=== PATIENT | female | born 2000 | race Caucasian/White ===

== ENCOUNTER 2025-01-24 06:44 | Observation (INO) | payer OTHER, SELFPAY ==
[2025-01-24 07:31] VITALS: BP 118/65
[2025-01-24 07:34] LABS: Add Manual Diff / Slide Review NO; Basophils Absolute Auto 0 /uL (0-100); Basophils Percent Auto 0.3 % (0-2); Eosinophils Absolute Auto 100 /uL (0-450); Eosinophils Percent Auto 0.9 % (2-4); Hematocrit 37.7 % (36-46); Hemoglobin 12.7 g/dL (12.0-16.0); Lymphocytes Absolute Auto 1700 /uL (1100-4500); Lymphocytes Percent Auto 17.5 % (25-40); Mean Corpuscular HGB Conc 33.7 % (30-36); Mean Corpuscular Hemoglobin 29.1 PG (26-34); Mean Corpuscular Volume 86.3 fL (80-100); Monocytes Absolute Auto 700 /uL (0-900); Monocytes Percent Auto 7.2 % (3-14); Neutrophils Absolute Auto 7000 /uL (1500-7000); Neutrophils Percent Auto 74.1 % (50-75); Platelet Count 234 X10^3/uL (150-400); Red Blood Cell Count 4.37 X10^6/uL (4.0-5.2); White Blood Cell Count 9.5 X10^3/uL (4.5-11.0)
[2025-01-24] MEDS: TERBUTALINE 1 MG/ML VIAL 0.25 MG SUBCUT (08:01)
--- NOTE | 2025-01-24 09:21 | P.TNLD_ITS ---
Visit Information Visit Information Date of evaluation: 01/24/25 Primary OB Provider: Shazia Waterman On-call OB Provider: Tang Mcclain Reason for Evaluation: Yes other Comments/Additional reasons for admission: Danica is a 24 year old primigravida, ASHLEIGH 02/[birth year]/2025 presenting in referral from her commercial real estate broker, Shazia Waterman now for external cephalic version @ 38+5 wks EGA. Bedside ultrasound confirms that the baby is in an incomplete breech presentation with the left leg fully extended and the right leg flexed at the knee. KARL is 8+ cm. Placenta is grade 2-3, fundal. NST reactive prior to ECV attempt. Vital Signs Vital Signs: Vital Signs - 8 hr 01/24/25 07:31 Blood Pressure 118/65 Review of Systems Review of Systems Narrative: Problem-specific ROS positives included in HPI Exam Vital Signs (past 8 hours): - 01/24/25 07:31 Blood Pressure 118/65 Const General: cooperative and comfortable Nutritional Appearance: average body habitus Orientation: alert and oriented x3 HENMT Head: normal to inspection, normocephalic and atraumatic Ears: hearing grossly normal bilaterally Face and sinus: face symmetric Eyes General: appearance normal, both eyes and all related structures Conjunctivae: conjunctivae normal Sclera: sclerae normal EOM: EOM intact bilaterally Neck Neck: normal visual inspection Resp Effort & Inspection: normal respiratory effort and able to speak in complete sentences Uterus Location (Fundal Height): 37 Presentation: single footling breech (Back left, left leg footling, right leg gonzalez) Estimated Weight (lbs): 8 Psych Appearance: grossly normal Mental Status: mental status grossly normal Speech and Movement: speech and movement normal Mood: congruent mood Affect: normal affect Attitude: cooperative Thought Process: normal Thought Content: normal Judgment: judgment good Objective Labs 01/24/25 06:57 Labs: Laboratory Results - last 24 hr 01/24/25 06:57 WBC 9.5 RBC 4.37 Hgb 12.7 Hct 37.7 MCV 86.3 MCH 29.1 MCHC 33.7 RDW 15.0 H Plt Count 234 Neut % (Auto) 74.1 Lymph % (Auto) 17.5 L [place] % (Auto) 7.2 Eos % (Auto) 0.9 L Baso % (Auto) 0.3 Neut # (Auto) 7000 Lymph # (Auto) 1700 [place] # (Auto) 700 Eos # (Auto) 100 Baso # (Auto) 0 Blood Type O Positive Antibody Screen Negative Diagnosis, Plan/Disposition Final Diagnosis (1) Single footling breech presentation: Status: Acute (2) Failed external cephalic version: Status: Acute Plan/Disposition Plan: position confirmed w/ bedside US. KARL adequate, placenta postero-fundal Gr.2-3. NST reactive. Terbutaline .25 mg SQ given. After 15 minutes, external cephalic version attempted w/ breech difficult to elevate out of the pelvis w/ rotation first counterclockwise the clockwise x 2 each. Little rotation achieved with any attempt and after about 15-20 minutes, initial version attempts discontinued and patient offered SBA for another attempt under regional anesthesia but declined but declined by patient in favor of expectant management. The patent's commercial real estate broker notified of outcome and patient's desire for expectant management with CS as indicated should spontaneous version not occur.
== END 2025-01-24 09:20 | disposition home or self-care (01) ==
PROVIDERS: Admitting Provider Obstetrics & Gynecology; Referring Provider Obstetrics & Gynecology; Visit Provider Obstetrics & Gynecology
DX: Z36.9 Encounter for antenatal screening, unspecified (principal); O32.8XX0 Maternal care for other malpresentation of fetus, not applicable or unspecified; Z3A.38 38 weeks gestation of pregnancy; Z87.891 Personal history of nicotine dependence
CPT/HCPCS: 36415; 59050; 59412; 76815; 85025; 86850; 86900; 86901; 96372; G0378; G0379

== ENCOUNTER → 2025-01-29 14:02 | Outpatient (CLI) | payer OTHER, SELFPAY ==
--- NOTE | 2025-01-29 14:03 | DI.US.S_ITS ---
PROCEDURE: US OB LIMITED INDICATIONS: POSITION OUTSIDE/PRIOR DATING DATA: The calculations are made using the clinical ASHLEIGH of 02/02/2025. TECHNIQUE: Real-time scanning was performed of the fetus, with image documentation. Endovaginal scanning: Not performed COMPARISON: None. FINDINGS: General: A single living intrauterine gestation is present. Presentation: Breech. Placenta: Placental position is fundal, without previa. Amniotic fluid index: 11.3 cm, normal range is 5-24 cm. Single deepest vertical pocket is 5.3 cm. heart rate: 130 beats per minute. Maternal cervical canal: Not well seen. Clinically estimated gestational age: 39 weeks 3 days IMPRESSION: 1. Chavez living intrauterine at 39 weeks 3 days based on prior dating. Breech position. 2. Normal placenta and amniotic fluid. We strive to produce accurate, complete, and clear reports of imaging services. To assist us in improving patient care, this report was composed using standard report templates and voice recognition software. Therefore, it may contain abnormal punctuation, insertions and/or omissions. Occasional wrong-word or sound-alike substitutions may occur. Though we review the report and make efforts to correct it, we do recommend that the report be read carefully in proper context to recognize any text inaccuracies. Dictated by: Moe Ortiz M.D. on 01/29/2025 at 16:51 Approved by: Moe Ortiz M.D. on 01/29/2025 at 16:53
== END ==
PROVIDERS: Referring Provider Midwife; Visit Provider Midwife
DX: Z34.03 Encounter for supervision of normal first pregnancy, third trimester (principal); Z3A.39 39 weeks gestation of pregnancy
CPT/HCPCS: 76815

== ENCOUNTER 2025-01-29 14:59 | Inpatient (IN) | payer OTHER, SELFPAY ==
[2025-01-29] MEDS: CITRIC ACID/SODIUM CITRATE 15 ML SOLUTION 30 ML PO (15:36)
[2025-01-29] MEDS: LACTATED RINGERS 1,000 ML 999 ML IV (15:36)
--- NOTE | 2025-01-29 15:45 | PM.OBHP.IH.1 ---
OB HPI <Marta Dove MD - Last Filed: 01/29/25 17:08> History of Present Condition Chief complaint: TRIAGE Preadmission Labs Last OB Lab Results: Blood Type O Positive 01/29/25, 15:25 Antibody Screen Negative 01/29/25, 15:25 Hct, (36-46) 35.8 % L Today, 05:56 Hgb, (12.0-16.0) 11.8 g/dL L Today, 05:56 <Niki Aguilar MD - Last Filed: 01/30/25 07:59> Date/Time Date of admission: 01/29/25 Date Patient Seen: 01/29/25 Time Patient Seen: 15:45 History of Present Condition Estimated Gestational Age (weeks): 39w0d : 1 Narrative: This is a 24 yo G1 at 39w0d here with spontaneous labor and breech positioning. Failed ECV last week. Follows with sales office manager on Wednesday. Reports no medical problems this . Not taking any medications. Contractions began last night. Membranes intact, GBS status unknown. care: good care Obstetrical complications: none Medical complications OB: none Evaluation <Marta Dove MD - Last Filed: 01/29/25 17:08> Evaluation Contraction Frequency (minutes): 5 <Niki Aguilar MD - Last Filed: 01/30/25 07:59> Evaluation Baseline heart rate: 125 Variability: Average (6-10) monitor accelerations: Present Monitor Decelerations: Absent Uterine Contraction Intensity: Moderate Category of Tracing: Reactive Status: Category l Dilation (cm): 5 Effacement (%): 100 Meds <Marta Dove MD - Last Filed: 01/29/25 17:08> Home Medications and Allergies Allergies Allergy/AdvReac Type Severity Reaction Status Date / Time No Known Drug Allergies Allergy Verified 01/24/25 07:31 OB Exam <Marta Dove MD - Last Filed: 01/29/25 17:08> Narrative Exam Narrative: Generally: Patient tearful, sitting up in bed, no acute distress Lungs: Clear to auscultation bilaterally Cardiovascular: Regular rate and rhythm Fundal height: 39 cm Estimated weight: 7 lb Extremities: No edema Objective <Marta Dove MD - Last Filed: 01/29/25 17:08> Labs 01/30/25 05:56 Assessment and Plan <Marta Dvoe MD - Last Filed: 01/29/25 17:08> Assessment and Plan Assessment and Plan narrative: Assessment: 24-year-old 1 para 0 at 39 weeks' gestation with breech presentation in active labor Failed external cephalic version last week Plan: Primary section The risks, benefits, and alternatives to the procedure were explained to the patient. The risks including bleeding, infection, injury to the bowel, bladder, or ureters. She understands these risks and agrees to proceed. A full par Q was held and consent form was signed. <Niki Aguilar MD - Last Filed: 01/30/25 07:59> Assessment and Plan Assessment and Plan narrative: 24 yo G1 at 39w0d here with spontaneous labor and breech positioning. Follows with sales office manager on Wednesday. Breech positioning confirmed on US. -It was explained to the patient that a section is a surgery to deliver the baby through an incision in the abdominal wall and uterus. All procedures can be associated with risk and unforeseen complications, which can be immediate or delayed. Risks and complications of section include, but are not limited to: infection of the uterus, pelvic organs, or skin; inadvertent injury to internal organs such as the bowel, bladder, or possibly even the baby; blood loss, transfusion, and/or life-threatening hemorrhage requiring hysterectomy; blood clots in the legs, pelvic organs, or lungs; adverse reaction to medications or anesthesia during surgery; development of placenta accreta spectrum in a subsequent ; and increased risk of section in a subsequent . -proceed to OR for CS -awaiting records Time-Based Coding :: 30 minutes spent with patient and on the chart (including review of chart, obtaining history, exam, reviewing outside data, placing orders, documenting exam and treatment plan, and counseling patient) on 01/29/25.
[2025-01-29 15:49] LABS: Add Manual Diff / Slide Review NO; Basophils Absolute Auto 0 /uL (0-100); Basophils Percent Auto 0.4 % (0-2); Eosinophils Absolute Auto 0 /uL (0-450); Eosinophils Percent Auto 0.3 % (2-4); Hemoglobin 12.7 g/dL (12.0-16.0); Lymphocytes Absolute Auto 1300 /uL (1100-4500); Lymphocytes Percent Auto 11.9 % (25-40); Mean Corpuscular HGB Conc 33.3 % (30-36); Monocytes Absolute Auto 700 /uL (0-900); Monocytes Percent Auto 6.3 % (3-14); Neutrophils Absolute Auto 9000 /uL (1500-7000); Neutrophils Percent Auto 81.1 % (50-75); Platelet Count 223 X10^3/uL (150-400); Red Blood Cell Count 4.37 X10^6/uL (4.0-5.2); Red Cell Distribution Width 14.9 % (11.6-14.8); White Blood Cell Count 11.1 X10^3/uL (4.5-11.0)
--- NOTE | 2025-01-29 15:53 | PM.PREOP ---
Pre-operative Note Interval Note History & Physical reviewed/Exam performed by Physician: Yes Changes to H&P: No H&P completed within 30 days and has changed as indicated here:: 01/29/25
[2025-01-29] MEDS: CEFAZOLIN 2 GM/100 ML PREMIX 100 ML IV (16:23)
[2025-01-29] MEDS: ACETAMINOPHEN IV 1,000 MG/100 ML VIAL 400 MG IV (16:35)
--- NOTE | 2025-01-29 17:20 | PM.OBCS.1 ---
Operative Date/Time/Diagnoses Date of procedure: 01/29/25 Time of procedure: 04:30 Pre-op diagnosis: Breech positioning, term Post-op diagnosis: same Procedure & Clinicians Procedure: Primary Same procedure as scheduled: Yes Indications: Breech positioning Surgeon: Niki Aguilar Grinder Gear: Marta Dove Reason for Grinder Gear: unscheduled Anesthesia Type: Spinal Operative Notes Findings: Normal uterus, ovaries, and tubes; left paratubal cyst removed Closure Type: primary Applied: Catheter Estimated Blood Loss (mL): 500 Blood products transfused: none Procedure in detail: OPERATIVE COURSE: The patient was taken to the operating room where spinal anesthesia was placed. She was then prepared and draped in the normal sterile fashion in the dorsal supine position with a leftward tilt. Anesthesia was tested and found to be adequate. A Pfannensteil skin incision was then made with the scalpel and carried through to the underlying layer of fascia with the scalpel. The fascia was incised in the midline and the incision extended laterally with the Mariee scissors. The superior aspect of the fascial incision was then grasped with Christianne clamps, elevated with the help of the surgical scrub tech, and the underlying rectus muscles dissected off bluntly and sharply where needed. Attention was then turned to the inferior aspect of the incision which, in a similar fashion, was grasped, tented up with Christianne clamps, and the rectus muscle dissected off bluntly and sharply with Mariee scissors. The rectus muscles were then in the midline, and the peritoneum was identified and entered bluntly. The peritoneal incision was then extended with good visualization of the bladder. Retraction was provided by the surgical scrub tech. The Shelton retractor was placed. The vesicouterine peritoneum identified, grasped with pick-ups and entered sharply with the Metzenbaum scissors. The incision was then extended laterally and the bladder flap created digitally. The lower uterine segment incised in a transverse fashion with the scalpel, with the surgical scrub tech providing suction. The uterine incision was then extended superolaterally by pulling superolaterally on both sides. Membranes were ruptured and fluid was clear. The infant was in footling breech position and feet were grasped and removed. The left arm was swept and removed. The right arm was swept and removed second. The head was flexed and delivered atraumatically, with fundal pressure by the surgical scrub tech. The nose and mouth were suctioned with bulb suction and the cord was clamped and cut. The infant was handed off to the waiting nursing staff. Cord blood was collected for Rh status. The placenta was then delivered with gentle cord traction. The uterus was then exteriorized and cleared of all clots and debris. The uterine incision was repaired with in a running, locked fashion. A second layer was used to obtain excellent hemostasis. There was a small left paratubal cyst that was removed with the bovie. The uterus was returned to the abdomen. The gutters were cleared of all clots. Hysterotomy was investigated and found to be hemostatic. The fascia was reapproximated with 0- vicryl in a running fashion. The subcutaneous tissue was reapproximated with 3-0 vicryl. The skin was closed with 3-0 monocryl. The surgical scrub tech helped with retraction during closures. SPONGE AND NEEDLE COUNTS: Correct x3. DRESSING: Glue, telfa ANTICOAGULATION: SCDs applied prior to Surgery Preop antibiotics given (see MAR). The patient was taken to recovery room having tolerated procedure well. Complications: none Post-operative Condition: stable Disposition: PACU Aftercare: routine postop
[2025-01-29 17:21] VITALS: BP 129/77; PULSE 82; RESP 16; TEMP 36.3; O2SAT 100
[2025-01-29 17:26] VITALS: BP 123/78; PULSE 78; RESP 13; O2SAT 99
[2025-01-29 17:31] VITALS: BP 124/77; PULSE 73; RESP 15; O2SAT 99
[2025-01-29 17:36] VITALS: BP 122/68; PULSE 68; RESP 13; TEMP 36.2; O2SAT 99
[2025-01-29 17:41] VITALS: BP 123/77; PULSE 66; RESP 12; O2SAT 98
[2025-01-29] MEDS: HYDROMORPHONE 0.5 MG INJ IV ×2 (19:10→22:08)
[2025-01-29] MEDS: LANOLIN OINT 7 GM 1 APPLIC TOP (22:07)
[2025-01-29] MEDS: SENNOSIDES 8.6 MG TABLET PO (22:07)
[2025-01-29] MEDS: ACETAMINOPHEN 325 MG TABLET 650 MG PO (22:07)
[2025-01-29] MEDS: diphenhydrAMINE 50 MG/ML VIAL 25 MG IV (23:43)
[2025-01-30] MEDS: WITCH HAZEL/GLYCERIN PADS 1 EACH TOP (00:02)
[2025-01-30] MEDS: KETOROLAC 30 MG/ML VIAL IV ×3 (00:02→12:38)
[2025-01-30] MEDS: ACETAMINOPHEN 325 MG TABLET 650 MG PO ×2 (04:04→10:25)
[2025-01-30 06:33] LABS: Add Manual Diff / Slide Review NO; Basophils Absolute Auto 0 /uL (0-100); Basophils Percent Auto 0.2 % (0-2); Eosinophils Absolute Auto 0 /uL (0-450); Eosinophils Percent Auto 0.4 % (2-4); Hematocrit 35.8 % (36-46); Hemoglobin 11.8 g/dL (12.0-16.0); Lymphocytes Absolute Auto 1000 /uL (1100-4500); Lymphocytes Percent Auto 9.7 % (25-40); Mean Corpuscular HGB Conc 33.1 % (30-36); Mean Corpuscular Hemoglobin 29.3 PG (26-34); Mean Corpuscular Volume 88.3 fL (80-100); Monocytes Absolute Auto 800 /uL (0-900); Monocytes Percent Auto 7.7 % (3-14); Neutrophils Absolute Auto 8500 /uL (1500-7000); Platelet Count 188 X10^3/uL (150-400); Red Blood Cell Count 4.05 X10^6/uL (4.0-5.2); Red Cell Distribution Width 15.5 % (11.6-14.8); White Blood Cell Count 10.4 X10^3/uL (4.5-11.0)
--- NOTE | 2025-01-30 08:00 | P.PNOB_ITS ---
Subjective - OB Subjective Patient comments: no complaints and pain well controlled [place] baby status: doing well and nursing well feeding status: exclusively breast feeding Narrative: This is a 24 yo G1 now P1 post op day 1 from a pLTCS for breech positioning. She is doing well. Bleeding wnl. well. Pain controlled. Date Patient Seen: 01/30/25 Time Patient Seen: 07:30 Exam Vital Signs (past 8 hours): Oxygen Delivery Method Room Air Narrative Exam Narrative: NAD, resting comfortably in bed Objective Labs 01/30/25 05:56 Labs: Laboratory Results - last 24 hr 01/29/25 01/30/25 15:25 05:56 WBC 11.1 H 10.4 RBC 4.37 4.05 Hgb 12.7 11.8 L Hct 38.0 35.8 L MCV 87.0 88.3 MCH 29.0 29.3 MCHC 33.3 33.1 RDW 14.9 H 15.5 H Plt Count 223 188 Neut % (Auto) 81.1 H 82.0 H Lymph % (Auto) 11.9 L 9.7 L [place] % (Auto) 6.3 7.7 Eos % (Auto) 0.3 L 0.4 L Baso % (Auto) 0.4 0.2 Neut # (Auto) 9000 H 8500 H Lymph # (Auto) 1300 1000 L [place] # (Auto) 700 800 Eos # (Auto) 0 0 Baso # (Auto) 0 0 Blood Type O Positive Antibody Screen Negative Assessment & Plan Plan day: 1 plan OB: routine care and routine postop care Time-Based Coding :: 30 minutes spent with patient and on the chart (including review of chart, obtaining history, exam, reviewing outside data, placing orders, documenting exam and treatment plan, and counseling patient) on 01/30/2025.
--- NOTE | 2025-01-30 14:24 | PM.OBDS.1 ---
Discharge Providers Provider Date of admission: 01/29/25 14:59 Discharge Date: 01/30/25 Consults: 01/29/25 17:56 Consult to Special Education Science Teacher Routine Comment: Discharge provider: Niki Aguilar MD Summary Hospital Course Date Patient Seen: 01/30/25 Time Patient Seen: 07:30 Diagnoses: Term Breech Positioning Primary Low Transverse Delivery Hospital Course: This is a 24 yo G2 now P1 who presented to L&D in spontaneous labor at 39w0d and found to be 5-6 cm with baby in breech positioning. care provided by fork truck driver on [facility]. Patient underwent primary section without complications. She recovered well . without difficulty. She was passing flatus, voiding and walking without difficulty and tolerating pain medications. Recommendation was to stay for 36 hours minimum which patient declined and requested discharge at 24 hours. Meeting all milestones following surgery so MD agreeable to discharge. Peripartum Data Delivery Method: Section Laceration Description: None Procedures: pltcs complications: none Status at Discharge Cognitive/behavioral status at discharge: oriented Functional status at discharge: independent ambulation Overall status at discharge: patient is back to baseline Time Spent with Patient Time attestation: Total time spent providing and/or coordinating discharge services: 40 minutes Time spent: Greater than 30 minutes Objective Labs 01/30/25 05:56 Labs: Laboratory Results - last 24 hr 01/29/25 01/30/25 15:25 05:56 WBC 11.1 H 10.4 RBC 4.37 4.05 Hgb 12.7 11.8 L Hct 38.0 35.8 L MCV 87.0 88.3 MCH 29.0 29.3 MCHC 33.3 33.1 RDW 14.9 H 15.5 H Plt Count 223 188 Neut % (Auto) 81.1 H 82.0 H Lymph % (Auto) 11.9 L 9.7 L [place] % (Auto) 6.3 7.7 Eos % (Auto) 0.3 L 0.4 L Baso % (Auto) 0.4 0.2 Neut # (Auto) 9000 H 8500 H Lymph # (Auto) 1300 1000 L [place] # (Auto) 700 800 Eos # (Auto) 0 0 Baso # (Auto) 0 0 Blood Type O Positive Antibody Screen Negative Exam Vital Signs (past 8 hours): Oxygen Delivery Method Room Air Narrative Exam Narrative: NAD, breathing easily Discharge Plan Discharge Plan Patient Disposition: Home Discharge orders & Medications Prescriptions: New sennosides [senna] 8.6 mg Tablet 8.6 mg PO BEDTIME Qty: 30 0RF acetaminophen 325 mg Tablet 650 mg PO Q6H Qty: 60 0RF ibuprofen 600 mg Tablet 600 mg PO Q6H Qty: 60 0RF oxycodone 5 mg Tablet 5 mg PO Q4HR PRN (Reason: Pain, Moderate (4-6)) Qty: 15 0RF Follow up/Referrals: Floyd Hess MD [Physician, Family Practice] - 02/13/25 2:45 am Referral Note: Incision check Visit Report/Discharge Packet Instructions: DI for Hemorrhage, DI for Depression Stand Alone Forms: Discharge: Care, Patient Portal/API, Stroke Signs & Symptoms Discharges patient from system. Discharge Date/Time: 01/30/25 16:28
[2025-01-30 16:28] VITALS: BP 118/88; PULSE 86; RESP 16; TEMP 36.4
== END 2025-01-30 16:28 | disposition home or self-care (01) | DRG 539 ==
PROVIDERS: Obstetrics & Gynecology; Admitting Provider Student in an Organized Health Care Education/Training Program; Referring Provider Student in an Organized Health Care Education/Training Program; Visit Provider Student in an Organized Health Care Education/Training Program
PROC: 10D00Z1 Extraction of Products of Conception, Low, Open Approach (ICD-10-PCS; CPT 59514; principal; 2025-01-29 16:00)
DX: O64.8XX0 Obstructed labor due to other malposition and malpresentation, not applicable or unspecified (principal); N83.8 Other noninflammatory disorders of ovary, fallopian tube and broad ligament; O99.892 Other specified diseases and conditions complicating childbirth; Z37.0 Single live birth; Z3A.39 39 weeks gestation of pregnancy
CPT/HCPCS: 59050; 76815; 85025; 86850; 86900; 86901; G0379; J0131; J0690; J1171; J1200; J1885; J2250; J2274; J2405; J2704; J3010